=== PATIENT | female | born 1930 | race African-American/Black ===

== ENCOUNTER 2019-06-11 13:06 | Inpatient (IN) | payer MEDICARE, MEDICAID ==
[~2019-06-11] VITALS: Ht 165.1 cm; Wt 78.5 kg
[~2019-06-11 13:06] MED LIST: DOCU-150 PO; FENO200C PO; LANTUS SQ
[2019-06-11 13:57] LABS: BASOPHILS % 0.9 % (0.0-2.0); EOSINOPHILS % 3.1 % (0.0-5.0); HEMATOCRIT. 36.5 % (36.0-48.0); HEMOGLOBIN. 12.1 g/dL (12.0-16.0); LYMPHOCYTES % 21.2 % (20.0-50.0); MEAN CORPUSCULAR HEMOGLOBIN 32.8 pg (28.0-32.0); MEAN CORPUSCULAR VOLUME 99.2 fL (81.0-99.0); MEAN PLATELET VOLUME 7.2 fl (7.4-10.4); MONOCYTES % 4.7 % (2.0-8.0); NEUTROPHILS % 70.1 % (40.0-76.0); PLATELET 305 x1000/uL (130-400); RED BLOOD CELL COUNT 3.68 mill/uL (4.2-5.4); RED CELL DISTRIBUTION WIDTH 13.4 % (11.6-14.6)
[2019-06-11 14:03] LABS: CHLORIDE 109 mEq/L (98-107)
[2019-06-11 14:06] LABS: PROTHROMBIN TIME 10.4 sec (9.6-11.0)
[2019-06-11] MEDS ORDERED: LACTULOSE 20G/30ML UDC PO PRN (19:45)
[2019-06-11] MEDS ORDERED: ONDANSETRON HCL 4MG/2ML INJ IV PRN (19:45)
[2019-06-11] MEDS ORDERED: IPRATROPIUM/ALBUTEROL 0.5-3(2.5)MG/3ML NEB NEB PRN (19:45)
[2019-06-11] MEDS ORDERED: MAGNESIUM/ALUMINUM HYDROXIDE/SIMETHICONE 30ML UDC PO PRN (19:45)
[2019-06-11] MEDS ORDERED: CLONIDINE 0.1MG TABLET PO PRN (19:45)
[2019-06-11] MEDS ORDERED: DEXTROSE 50% WATER 50ML SYRINGE IV PRN (21:15)
[2019-06-11] MEDS: BLOOD SUGAR DIAGNOSTIC STRIP TEST SCH (21:30)
[2019-06-11] MEDS: INSULIN LISPRO (LOW DOSE) 100 UNITS/ML SUBCUT SCH (21:30)
[2019-06-11 21:45] VITALS: BP 163/62
[2019-06-11 22:48] VITALS: BP 163/62
[2019-06-11] MEDS: DEXT 5%/0.45% NACL 1000ML 1,000 ML IV SCH (23:24)
[2019-06-11] MEDS: ENOXAPARIN 40MG/0.4ML SYR SUBCUT SCH (23:26)
[2019-06-12 00:05] VITALS: BP 139/47
[2019-06-12 04:00] VITALS: BP 115/45
[2019-06-12] MEDS ORDERED: IOHEXOL-350 100 ML BOTTLE ONE (07:19)
[2019-06-12] MEDS: BLOOD SUGAR DIAGNOSTIC STRIP TEST SCH ×4 (07:42→21:02)
[2019-06-12] MEDS: INSULIN LISPRO (LOW DOSE) 100 UNITS/ML SUBCUT SCH ×4 (07:43→21:00)
[2019-06-12 07:58] LABS: BASOPHILS % 0.5 % (0.0-2.0); EOSINOPHILS % 6.2 % (0.0-5.0); HEMATOCRIT. 32.4 % (36.0-48.0); HEMOGLOBIN. 10.8 g/dL (12.0-16.0); LYMPHOCYTES % 40.3 % (20.0-50.0); MEAN CORPUSCULAR HEMOGLOBIN 32.9 pg (28.0-32.0); MEAN CORPUSCULAR VOLUME 98.9 fL (81.0-99.0); MEAN PLATELET VOLUME 7.2 fl (7.4-10.4); PLATELET 291 x1000/uL (130-400); RED BLOOD CELL COUNT 3.28 mill/uL (4.2-5.4); RED CELL DISTRIBUTION WIDTH 13.3 % (11.6-14.6)
[2019-06-12 08:00] VITALS: BP 132/58
[2019-06-12] MEDS: DOCUSATE SODIUM 250MG CAPSULE PO SCH (08:15)
[2019-06-12 09:54] LABS: CHLORIDE 112 mEq/L (98-107)
[2019-06-12 10:01] LABS: PHOSPHORUS 2.3 mg/dL (2.5-4.9)
[2019-06-12 12:00] VITALS: BP 125/50
[2019-06-12 16:00] VITALS: BP 121/44
[2019-06-12] MEDS: DEXT 5%/0.45% NACL 1000ML 1,000 ML IV SCH (18:04)
[2019-06-12 20:00] VITALS: BP 153/55
[2019-06-12] MEDS: ACETAMINOPHEN 325MG TABLET PO PRN (21:04)
[2019-06-12] MEDS: ENOXAPARIN 40MG/0.4ML SYR SUBCUT SCH (21:31)
[2019-06-13 00:01] VITALS: BP 126/46
[2019-06-13 04:00] VITALS: BP 141/65
[2019-06-13 08:00] VITALS: BP 149/57
[2019-06-13] MEDS: BLOOD SUGAR DIAGNOSTIC STRIP TEST SCH ×4 (08:08→21:24)
[2019-06-13] MEDS: INSULIN LISPRO (LOW DOSE) 100 UNITS/ML SUBCUT SCH ×4 (08:08→21:45)
[2019-06-13] MEDS: DOCUSATE SODIUM 250MG CAPSULE PO SCH (08:19)
[2019-06-13] MEDS: DEXT 5%/0.45% NACL 1000ML 1,000 ML IV SCH ×2 (08:20→23:36)
[2019-06-13 12:00] VITALS: BP 132/49
[2019-06-13 16:34] VITALS: BP 129/48
[2019-06-13] MEDS: ENOXAPARIN 40MG/0.4ML SYR SUBCUT SCH (21:42)
[2019-06-14] MEDS: BLOOD SUGAR DIAGNOSTIC STRIP TEST SCH ×4 (05:48→21:00)
[2019-06-14 06:15] LABS: BASOPHILS % 0.5 % (0.0-2.0); EOSINOPHILS % 4.1 % (0.0-5.0); LYMPHOCYTES % 38.6 % (20.0-50.0); MEAN CORPUSCULAR HEMOGLOBIN 33.2 pg (28.0-32.0); MEAN CORPUSCULAR VOLUME 99.5 fL (81.0-99.0); MEAN PLATELET VOLUME 7.3 fl (7.4-10.4); NEUTROPHILS % 49.8 % (40.0-76.0); PLATELET 277 x1000/uL (130-400); RED BLOOD CELL COUNT 3.32 mill/uL (4.2-5.4)
[2019-06-14] MEDS: INSULIN LISPRO (LOW DOSE) 100 UNITS/ML SUBCUT SCH ×4 (06:35→21:00)
[2019-06-14 07:24] LABS: CHLORIDE 114 mEq/L (98-107)
[2019-06-14 08:00] VITALS: BP 128/62
[2019-06-14] MEDS: DOCUSATE SODIUM 250MG CAPSULE PO SCH (09:13)
[2019-06-14 12:00] VITALS: BP 119/41
[2019-06-14 15:24] LABS: PHOSPHORUS 2.8 mg/dL (2.5-4.9)
[2019-06-14 16:00] VITALS: BP 103/34
[2019-06-14 16:28] LABS: T4 FREE 1.31 ng/dL (0.76-1.46)
[2019-06-14] MEDS: ACETAMINOPHEN 325MG TABLET PO PRN (17:56)
[2019-06-14] MEDS: METFORMIN HCL 500MG TABLET PO SCH (17:56)
[2019-06-14 20:00] VITALS: BP 114/63
[2019-06-14] MEDS: ENOXAPARIN 40MG/0.4ML SYR SUBCUT SCH (23:26)
[2019-06-15] VITALS: BP 157/56
[2019-06-15 06:36] VITALS: BP 114/67
[2019-06-15] MEDS: BLOOD SUGAR DIAGNOSTIC STRIP TEST SCH ×2 (07:40→11:56)
[2019-06-15 08:00] VITALS: BP 109/41
[2019-06-15] MEDS: INSULIN LISPRO (LOW DOSE) 100 UNITS/ML SUBCUT SCH ×2 (08:10→12:11)
[2019-06-15] MEDS: METFORMIN HCL 500MG TABLET PO SCH (08:21)
[2019-06-15] MEDS: DOCUSATE SODIUM 250MG CAPSULE PO SCH (08:21)
[2019-06-15 11:50] VITALS: BP 109/91
[2019-06-15 12:00] VITALS: BP 116/42
[2019-06-15 12:28] LABS: CHLORIDE 111 mEq/L (98-107)
[2019-06-15 13:11] LABS: C-PEPTIDE 0.7 ng/mL (1.1-4.4); INSULIN 4.6 uIU/mL (2.6-24.9)
[2019-06-15 16:00] VITALS: BP 115/59
[2019-06-16 09:11] LABS: FOLICLE STIMULATING HORMONE 91.3 mIU/mL (.)
== END 2019-06-15 17:14 | DRG 638 ==
LOC: ER 13:06 → 7WST 15:38 → EDBEDREQ 15:42 → EDBEDREQTM 15:42 → ENRESERV 20:19
PROVIDERS: ADMIT Internal Medicine Nephrology; ATTEND Internal Medicine Nephrology
DX: E11.649 Type 2 diabetes mellitus with hypoglycemia without coma (principal); E46 Unspecified protein-calorie malnutrition; I69.354 Hemiplegia and hemiparesis following cerebral infarction affecting left non-dominant side; E86.0 Dehydration; E78.5 Hyperlipidemia, unspecified; F17.200 Nicotine dependence, unspecified, uncomplicated; F20.9 Schizophrenia, unspecified; I11.0 Hypertensive heart disease with heart failure; I50.9 Heart failure, unspecified; I25.10 Atherosclerotic heart disease of native coronary artery without angina pectoris; J44.9 Chronic obstructive pulmonary disease, unspecified; L89.159 Pressure ulcer of sacral region, unspecified stage; E21.0 Primary hyperparathyroidism; Z74.01 Bed confinement status; Z95.810 Presence of automatic (implantable) cardiac defibrillator; Z79.4 Long term (current) use of insulin; Z68.28 Body mass index [BMI] 28.0-28.9, adult
CPT/HCPCS: 36415; 71045; 80048; 82330; 82947; 82962; 83001; 83002; 83525; 83735; 83880; 83970; 84100; 84439; 84443; 84484; 84681; 93005; 99285; J1650; J1815; Q9967

== ENCOUNTER 2019-08-08 15:56 | Inpatient (IN) | payer MEDICARE, MEDICAID ==
[~2019-08-08] VITALS: Ht 157.5 cm; Wt 72.6 kg
[2019-08-08 17:12] LABS: BASOPHILS % 0.2 % (0.0-2.0); EOSINOPHILS % 1.7 % (0.0-5.0); HEMATOCRIT. 40.3 % (36.0-48.0); HEMOGLOBIN. 12.1 g/dL (12.0-16.0); LYMPHOCYTES % 11.6 % (20.0-50.0); MEAN CORPUSCULAR HEMOGLOBIN 32.5 pg (28.0-32.0); MEAN CORPUSCULAR VOLUME 107.9 fL (81.0-99.0); MEAN PLATELET VOLUME 8.8 fl (7.4-10.4); MONOCYTES % 4.2 % (2.0-8.0); NEUTROPHILS % 82.3 % (40.0-76.0); PLATELET 327 x1000/uL (130-400); RED BLOOD CELL COUNT 3.73 mill/uL (4.2-5.4); RED CELL DISTRIBUTION WIDTH 15.1 % (11.6-14.6)
[2019-08-08] MEDS ORDERED: SODIUM CHLORIDE 0.9% 1000ML BAG (SEPSIS BOLUS) IV ONE (17:15)
[2019-08-08] MEDS ORDERED: INSULIN REGULAR (HUMULIN R) UD 100 UNITS/ML SYR SUBCUT ONE (17:15)
[2019-08-08] MEDS ORDERED: LEVOFLOXACIN 750MG PREMIX 150 ML IV ONE (17:15)
[2019-08-08 17:18] LABS: CHLORIDE 135 mEq/L (98-107)
[2019-08-08 17:20] LABS: INR 1.1; PARTIAL THROMBOPLASTIN TIME 28.3 sec (23.4-31.0); PROTHROMBIN TIME 11.4 sec (9.6-11.0)
[2019-08-08 17:24] LABS: BG BASE EXCESS -8.3 mmol/L (-2.0-2.0); BG CARBOXYHEMOGLOBIN 0.3 % (0.5-1.5); BG DEOXYHEMOGLOBIN 4.4 % (0.0-5.0); BG FRACTION INSPIRED OXYGEN 21; BG HCO3 ACT 17.1 mmol/L (22.0-26.0); BG METHEMOGLOBIN 0.3 % (0.0-1.5); BG OXYGEN SATURATION 95.6 % (92.0-98.5); BG PCO2 34.6 mmHg (35.0-45.0); BG PH 7.311 (7.350-7.450); BG PO2 82.5 mmHg (75.0-100.0); BG SAMPLE SITE RIGHT BRACHIAL; BG TOTAL HEMOGLOBIN 12.2 g/dL (12.0-18.0); BG VENT MODE ROOM AIR
[2019-08-08 17:25] LABS: BETA HYDROXYBUTYRATE 0.2 mMol/L (0.0-0.3)
[2019-08-08] MEDS ORDERED: INSULIN REGULAR (HUMULIN R) 300UNITS/3ML SUBCUT ONE (18:45)
[2019-08-08] MEDS ORDERED: INSULIN REGULAR (HUMULIN R) UD 100 UNITS/ML SYR IV ONE (20:45)
[2019-08-08] MEDS ORDERED: SODIUM BICARBONATE 8.4% 1 MEQ/ML 50ML SYR IV ONE (20:45)
[2019-08-08] MEDS ORDERED: PIPERACILLIN/TAZ 3.375G PREMIX 50 ML IV ONE (20:45)
[2019-08-08] MEDS ORDERED: VANCOMYCIN 1 G PREMIX 200 ML IV SCH (20:45)
[2019-08-08] MEDS ORDERED: INSULIN REGULAR (HUMULIN R) 300UNITS/3ML IV ONE (21:30)
[2019-08-08] MEDS ORDERED: SODIUM CHLORIDE 0.9% 1,000 ML IV SCH ×2 (22:19→22:36)
[2019-08-08] MEDS ORDERED: LORAZEPAM 2MG/ML CPJ IV PRN (22:30)
[2019-08-08] MEDS ORDERED: ONDANSETRON HCL 4MG/2ML INJ IV PRN (22:30)
[2019-08-08] MEDS ORDERED: MAGNESIUM/ALUMINUM HYDROXIDE/SIMETHICONE 30ML UDC PO PRN (22:30)
[2019-08-08 23:18] LABS: CLARITY URINE CLOUDY (CLEAR); COLOR URINE YELLOW (YELLOW); KETONES URINE NEGATIVE (NEGATIVE); LEUKOCYTE ESTERASE URINE 1+ (NEGATIVE); NITRITE URINE NEGATIVE (NEGATIVE); OCCULT BLOOD URINE 2+ (NEGATIVE); PROTEIN URINE TRACE (NEGATIVE); SPECIFIC GRAVITY URINE 1.024 (1.005-1.030); UROBILINOGEN URINE 0.2 E.U./dL (0.2-1.0)
[2019-08-09] VITALS (15 sets, daily range): BP systolic 86–154; BP diastolic 41–85
[2019-08-09] MEDS ORDERED: DEXTROSE 50% WATER 50ML SYRINGE IV PRN
[2019-08-09] MEDS: BLOOD SUGAR DIAGNOSTIC STRIP TEST SCH ×6 (00:15→20:06)
[2019-08-09] MEDS: ENOXAPARIN 30MG/0.3ML SYR SUBCUT SCH ×2 (00:16→20:25)
[2019-08-09] MEDS: INSULIN LISPRO 100 UNITS/ML SUBCUT SCH ×6 (01:07→20:24)
[2019-08-09] MEDS: SODIUM CHLORIDE 0.45% 1,000 ML IV SCH ×3 (03:49→18:18)
[2019-08-09] MEDS ORDERED: INSULIN REGULAR (HUMULIN R) UD 100 UNITS/ML SYR IV NR (04:30)
[2019-08-09] MEDS: ACETAMINOPHEN 325MG TABLET PO PRN (05:13)
[2019-08-09 07:29] LABS: BASOPHILS % 0.4 % (0.0-2.0); EOSINOPHILS % 1.6 % (0.0-5.0); HEMATOCRIT. 33.3 % (36.0-48.0); HEMOGLOBIN. 10.6 g/dL (12.0-16.0); LYMPHOCYTES % 13.7 % (20.0-50.0); MEAN CORPUSCULAR HEMOGLOBIN 32.1 pg (28.0-32.0); MEAN PLATELET VOLUME 8.7 fl (7.4-10.4); MONOCYTES % 5.7 % (2.0-8.0); NEUTROPHILS % 78.6 % (40.0-76.0); PLATELET 252 x1000/uL (130-400); RED CELL DISTRIBUTION WIDTH 13.4 % (11.6-14.6)
[2019-08-09 07:50] LABS: PHOSPHORUS 2.3 mg/dL (2.5-4.9)
[2019-08-09] MEDS ORDERED: DEXT 5% WATER 500 ML IV ONE (09:45)
[2019-08-09] MEDS: LEVOFLOXACIN 250MG PREMIX 50 ML IV SCH (18:17)
[2019-08-10] VITALS (12 sets, daily range): BP systolic 95–112; BP diastolic 39–70
[2019-08-10] MEDS: BLOOD SUGAR DIAGNOSTIC STRIP TEST SCH ×6 (00:06→20:51)
[2019-08-10] MEDS: INSULIN LISPRO 100 UNITS/ML SUBCUT SCH ×6 (00:22→20:57)
[2019-08-10] MEDS: INSULIN GLARGINE UD 100 UNITS/ML SYR SUBCUT SCH ×2 (00:25→21:35)
[2019-08-10] MEDS: SODIUM CHLORIDE 0.45% 1,000 ML IV SCH ×3 (02:26→18:03)
[2019-08-10 06:12] LABS: BASOPHILS % 0.4 % (0.0-2.0); EOSINOPHILS % 2.5 % (0.0-5.0); HEMATOCRIT. 31.1 % (36.0-48.0); LYMPHOCYTES % 26.5 % (20.0-50.0); MEAN CORPUSCULAR VOLUME 102.3 fL (81.0-99.0); MONOCYTES % 6.7 % (2.0-8.0); NEUTROPHILS % 63.9 % (40.0-76.0); PLATELET 229 x1000/uL (130-400); RED BLOOD CELL COUNT 3.04 mill/uL (4.2-5.4); RED CELL DISTRIBUTION WIDTH 13.8 % (11.6-14.6)
[2019-08-10 06:21] LABS: CHLORIDE 137 mEq/L (98-107)
[2019-08-10 06:37] LABS: PHOSPHORUS 2.5 mg/dL (2.5-4.9)
[2019-08-10 06:42] LABS: T4 FREE 1.17 ng/dL (0.76-1.46)
[2019-08-10] MEDS ORDERED: VANCOMYCIN 1 G PREMIX 200 ML IV SCH (17:00)
[2019-08-10] MEDS: LEVOFLOXACIN 250MG PREMIX 50 ML IV SCH (18:12)
[2019-08-10] MEDS: ENOXAPARIN 30MG/0.3ML SYR SUBCUT SCH (20:56)
[2019-08-11] VITALS (12 sets, daily range): BP systolic 101–149; BP diastolic 40–84
[2019-08-11] MEDS: BLOOD SUGAR DIAGNOSTIC STRIP TEST SCH ×5 (00:24→21:00)
[2019-08-11] MEDS: INSULIN LISPRO 100 UNITS/ML SUBCUT SCH ×4 (00:35→17:34)
[2019-08-11] MEDS: SODIUM CHLORIDE 0.45% 1,000 ML IV SCH ×2 (01:51→13:57)
[2019-08-11 06:33] LABS: HEMATOCRIT 31.4 % (36.0-48.0); HEMOGLOBIN 10.2 g/dL (12.0-16.0); MEAN CORPUSCULAR HEMOGLOBIN 32.7 pg (28.0-32.0); MEAN CORPUSCULAR VOLUME 100.3 fL (81.0-99.0); RED BLOOD CELL COUNT 3.13 mill/uL (4.2-5.4); RED CELL DISTRIBUTION WIDTH 13.4 % (11.6-14.6)
[2019-08-11] MEDS: INSULIN LISPRO (LOW DOSE) 100 UNITS/ML SUBCUT SCH ×3 (07:30→17:34)
[2019-08-11] MEDS ORDERED: INSULIN LISPRO 100 UNITS/ML SUBCUT SCH (07:30)
[2019-08-11 07:43] LABS: PHOSPHORUS 2.2 mg/dL (2.5-4.9)
[2019-08-11 09:26] LABS: PLATELET 232 x1000/uL (130-400)
[2019-08-11] MEDS: VANCOMYCIN 750 MG PREMIX 150 ML IV SCH (10:19)
[2019-08-11] MEDS: CEFAZOLIN 500MG in DEXTROSE 5% WATER 50ML IV SCH (13:57)
[2019-08-11] MEDS ORDERED: CEFAZOLIN SODIUM 1000MG/VIAL IV SCH (14:00)
[2019-08-11] MEDS: INSULIN GLARGINE UD 100 UNITS/ML SYR SUBCUT SCH (22:00)
[2019-08-11] MEDS: ENOXAPARIN 40MG/0.4ML SYR SUBCUT SCH (22:11)
[2019-08-12] VITALS (13 sets, daily range): BP systolic 92–144; BP diastolic 40–80
[2019-08-12] MEDS: CEFAZOLIN 500MG in DEXTROSE 5% WATER 50ML IV SCH ×2 (02:29→15:15)
[2019-08-12] MEDS: SODIUM CHLORIDE 0.45% 1,000 ML IV SCH ×2 (02:29→15:16)
[2019-08-12] MEDS: VANCOMYCIN 750 MG PREMIX 150 ML IV SCH ×2 (03:29→20:40)
[2019-08-12 06:03] LABS: BASOPHILS % 0.4 % (0.0-2.0); EOSINOPHILS % 2.3 % (0.0-5.0); HEMOGLOBIN. 9.3 g/dL (12.0-16.0); LYMPHOCYTES % 30.2 % (20.0-50.0); MEAN CORPUSCULAR HEMOGLOBIN 32.9 pg (28.0-32.0); MEAN CORPUSCULAR VOLUME 98.6 fL (81.0-99.0); MEAN PLATELET VOLUME 9.4 fl (7.4-10.4); NEUTROPHILS % 60.1 % (40.0-76.0); PLATELET 147 x1000/uL (130-400); RED BLOOD CELL COUNT 2.84 mill/uL (4.2-5.4); RED CELL DISTRIBUTION WIDTH 12.8 % (11.6-14.6)
[2019-08-12 06:12] LABS: CHLORIDE 124 mEq/L (98-107)
[2019-08-12] MEDS: INSULIN LISPRO 100 UNITS/ML SUBCUT SCH ×6 (07:30→17:49)
[2019-08-12] MEDS: BLOOD SUGAR DIAGNOSTIC STRIP TEST SCH ×4 (07:42→20:39)
[2019-08-12 08:20] LABS: PHOSPHORUS 1.7 mg/dL (2.5-4.9)
[2019-08-12] MEDS ORDERED: SODIUM PHOS,M-BASIC-D-BASIC 20 MM in DEXT 5% WATER 243.3333 ML IV ONE (11:30)
[2019-08-12] MEDS ORDERED: SODIUM PHOS,M-BASIC-D-BASIC 20 MM in DEXT 5% WATER 243.3333 ML IV NR ×2 (12:30→14:00)
[2019-08-12] MEDS: ENOXAPARIN 40MG/0.4ML SYR SUBCUT SCH (20:39)
[2019-08-12] MEDS: INSULIN GLARGINE UD 100 UNITS/ML SYR SUBCUT SCH (20:59)
[2019-08-13] VITALS (12 sets, daily range): BP systolic 87–136; BP diastolic 38–96
[2019-08-13] MEDS: CEFAZOLIN 500MG in DEXTROSE 5% WATER 50ML IV SCH ×2 (01:55→15:18)
[2019-08-13] MEDS: SODIUM CHLORIDE 0.45% 1,000 ML IV SCH ×2 (01:56→17:33)
[2019-08-13 05:52] LABS: BASOPHILS % 0.3 % (0.0-2.0); EOSINOPHILS % 1.7 % (0.0-5.0); HEMATOCRIT. 27.9 % (36.0-48.0); HEMOGLOBIN. 9.2 g/dL (12.0-16.0); LYMPHOCYTES % 27.3 % (20.0-50.0); MEAN CORPUSCULAR HEMOGLOBIN 32.5 pg (28.0-32.0); MEAN CORPUSCULAR VOLUME 98.2 fL (81.0-99.0); MEAN PLATELET VOLUME 8.7 fl (7.4-10.4); MONOCYTES % 6.5 % (2.0-8.0); NEUTROPHILS % 64.2 % (40.0-76.0); PLATELET 198 x1000/uL (130-400); RED BLOOD CELL COUNT 2.84 mill/uL (4.2-5.4); RED CELL DISTRIBUTION WIDTH 12.8 % (11.6-14.6)
[2019-08-13 06:22] LABS: FOLIC ACID (FOLATE) SERUM 13.3 ng/mL (>5.38)
[2019-08-13 06:35] LABS: CHLORIDE 122 mEq/L (98-107)
[2019-08-13 06:46] LABS: PHOSPHORUS 2.3 mg/dL (2.5-4.9)
[2019-08-13] MEDS: INSULIN LISPRO 100 UNITS/ML SUBCUT SCH ×6 (07:30→17:32)
[2019-08-13] MEDS: BLOOD SUGAR DIAGNOSTIC STRIP TEST SCH ×4 (08:11→20:56)
[2019-08-13] MEDS ORDERED: SODIUM PHOS,M-BASIC-D-BASIC 10 MM in DEXT 5% WATER 246.6667 ML IV NR (12:00)
[2019-08-13] MEDS: VANCOMYCIN 750 MG PREMIX 150 ML IV SCH (17:31)
[2019-08-13] MEDS: ENOXAPARIN 40MG/0.4ML SYR SUBCUT SCH (20:56)
[2019-08-13] MEDS: INSULIN GLARGINE UD 100 UNITS/ML SYR SUBCUT SCH (20:57)
[2019-08-14] VITALS (12 sets, daily range): BP systolic 105–135; BP diastolic 31–69
[2019-08-14] MEDS: CEFAZOLIN 500MG in DEXTROSE 5% WATER 50ML IV SCH ×2 (01:22→13:55)
[2019-08-14] MEDS: SODIUM CHLORIDE 0.45% 1,000 ML IV SCH ×3 (01:23→21:50)
[2019-08-14 06:07] LABS: CHLORIDE 118 mEq/L (98-107)
[2019-08-14 06:18] LABS: PHOSPHORUS 2.1 mg/dL (2.5-4.9)
[2019-08-14 06:31] LABS: BASOPHILS % 0.1 % (0.0-2.0); EOSINOPHILS % 1.7 % (0.0-5.0); HEMATOCRIT. 25.4 % (36.0-48.0); HEMOGLOBIN. 8.5 g/dL (12.0-16.0); LYMPHOCYTES % 31.2 % (20.0-50.0); MEAN CORPUSCULAR HEMOGLOBIN 33.3 pg (28.0-32.0); MEAN PLATELET VOLUME 8.5 fl (7.4-10.4); MONOCYTES % 7.1 % (2.0-8.0); NEUTROPHILS % 59.9 % (40.0-76.0); PLATELET 253 x1000/uL (130-400); RED BLOOD CELL COUNT 2.57 mill/uL (4.2-5.4); RED CELL DISTRIBUTION WIDTH 12.8 % (11.6-14.6)
[2019-08-14] MEDS: BLOOD SUGAR DIAGNOSTIC STRIP TEST SCH ×4 (07:30→21:44)
[2019-08-14] MEDS: INSULIN LISPRO 100 UNITS/ML SUBCUT SCH ×6 (08:00→17:30)
[2019-08-14] MEDS: VANCOMYCIN 750 MG PREMIX 150 ML IV SCH (09:49)
[2019-08-14] MEDS: ENOXAPARIN 40MG/0.4ML SYR SUBCUT SCH (21:44)
[2019-08-14] MEDS: INSULIN GLARGINE UD 100 UNITS/ML SYR SUBCUT SCH (21:50)
[2019-08-15] VITALS (12 sets, daily range): BP systolic 97–139; BP diastolic 48–74
[2019-08-15] MEDS: CEFAZOLIN 500MG in DEXTROSE 5% WATER 50ML IV SCH ×2 (01:45→17:12)
[2019-08-15] MEDS: VANCOMYCIN 750 MG PREMIX 150 ML IV SCH ×2 (03:49→21:47)
[2019-08-15] MEDS: SODIUM CHLORIDE 0.45% 1,000 ML IV SCH ×2 (06:52→18:54)
[2019-08-15] MEDS: INSULIN LISPRO 100 UNITS/ML SUBCUT SCH ×6 (07:30→17:14)
[2019-08-15] MEDS: BLOOD SUGAR DIAGNOSTIC STRIP TEST SCH ×4 (07:40→21:41)
[2019-08-15] MEDS ORDERED: SODIUM PHOS,M-BASIC-D-BASIC 15 MM in DEXT 5% WATER 245 ML IV NR (14:00)
[2019-08-15] MEDS ORDERED: LIDOCAINE HCL/EPINEPHRINE 1%-EPI 1:100,000 20 ML VIAL INFIL NR (15:00)
[2019-08-15] MEDS: INSULIN GLARGINE UD 100 UNITS/ML SYR SUBCUT SCH (21:47)
[2019-08-15] MEDS: ENOXAPARIN 40MG/0.4ML SYR SUBCUT SCH (21:48)
[2019-08-15] MEDS: ACETAMINOPHEN 325MG TABLET PO PRN (22:21)
[2019-08-16] VITALS: BP 90/37
[2019-08-16] MEDS: CEFAZOLIN 500MG in DEXTROSE 5% WATER 50ML IV SCH ×2 (02:30→15:24)
[2019-08-16 04:00] VITALS: BP 125/57
[2019-08-16] MEDS: BLOOD SUGAR DIAGNOSTIC STRIP TEST SCH ×4 (06:28→21:47)
[2019-08-16] MEDS: SODIUM CHLORIDE 0.45% 1,000 ML IV SCH ×2 (06:28→15:04)
[2019-08-16] MEDS: INSULIN LISPRO 100 UNITS/ML SUBCUT SCH ×6 (07:20→19:05)
[2019-08-16 08:14] VITALS: BP 101/47
[2019-08-16 12:41] VITALS: BP 125/55
[2019-08-16] MEDS: SODIUM HYPOCHLORITE 0.125% 473ML SOLUTION TOP SCH ×2 (15:05→15:24)
[2019-08-16 16:46] VITALS: BP 127/44
[2019-08-16] MEDS: VANCOMYCIN 750 MG PREMIX 150 ML IV SCH (16:59)
[2019-08-16 20:00] VITALS: BP 127/41
[2019-08-16] MEDS: ENOXAPARIN 40MG/0.4ML SYR SUBCUT SCH (21:46)
[2019-08-16] MEDS: INSULIN GLARGINE UD 100 UNITS/ML SYR SUBCUT SCH (21:47)
[2019-08-17] VITALS (10 sets, daily range): BP systolic 103–157; BP diastolic 48–85
[2019-08-17] MEDS: SODIUM CHLORIDE 0.45% 1,000 ML IV SCH ×3 (01:30→20:59)
[2019-08-17] MEDS: CEFAZOLIN 500MG in DEXTROSE 5% WATER 50ML IV SCH ×2 (03:52→15:56)
[2019-08-17] MEDS: BLOOD SUGAR DIAGNOSTIC STRIP TEST SCH ×4 (07:07→20:59)
[2019-08-17] MEDS: INSULIN LISPRO 100 UNITS/ML SUBCUT SCH ×6 (07:20→17:51)
[2019-08-17 08:31] LABS: BASOPHILS % 0.2 % (0.0-2.0); EOSINOPHILS % 1.5 % (0.0-5.0); LYMPHOCYTES % 22.5 % (20.0-50.0); MEAN CORPUSCULAR HEMOGLOBIN 32.9 pg (28.0-32.0); MEAN CORPUSCULAR VOLUME 97.2 fL (81.0-99.0); MONOCYTES % 8.5 % (2.0-8.0); NEUTROPHILS % 67.3 % (40.0-76.0); PLATELET 343 x1000/uL (130-400); RED BLOOD CELL COUNT 2.04 mill/uL (4.2-5.4); RED CELL DISTRIBUTION WIDTH 13.1 % (11.6-14.6)
[2019-08-17 08:38] LABS: HEMOGLOBIN. 6.7 g/dL (12.0-16.0)
[2019-08-17 08:39] LABS: HEMATOCRIT. 19.8 % (36.0-48.0)
[2019-08-17 08:41] LABS: CHLORIDE 103 mEq/L (98-107)
[2019-08-17] MEDS: VANCOMYCIN 750 MG PREMIX 150 ML IV SCH (09:40)
[2019-08-17] MEDS ORDERED: POTASSIUM CHLORIDE 20MEQ TABLET SR PO NR (11:00)
[2019-08-17] MEDS: SODIUM HYPOCHLORITE 0.125% 473ML SOLUTION TOP SCH (16:57)
[2019-08-17] MEDS ORDERED: POTASSIUM CHLORIDE 20MEQ TABLET SR PO SCH (17:00)
[2019-08-17 21:46] LABS: HEMATOCRIT 30.1 % (36.0-48.0); HEMOGLOBIN 10.1 g/dL (12.0-16.0); MEAN CORPUSCULAR HEMOGLOBIN 31.8 pg (28.0-32.0); MEAN CORPUSCULAR VOLUME 94.8 fL (81.0-99.0); PLATELET 419 x1000/uL (130-400); RED BLOOD CELL COUNT 3.17 mill/uL (4.2-5.4); RED CELL DISTRIBUTION WIDTH 14.2 % (11.6-14.6)
[2019-08-17 22:00] LABS: PROTHROMBIN TIME 10.6 sec (9.6-11.0)
[2019-08-17] MEDS: INSULIN GLARGINE UD 100 UNITS/ML SYR SUBCUT SCH (22:32)
[2019-08-18] VITALS: BP 124/51
[2019-08-18] MEDS: CEFAZOLIN 500MG in DEXTROSE 5% WATER 50ML IV SCH ×2 (02:29→13:31)
[2019-08-18] MEDS: VANCOMYCIN 750 MG PREMIX 150 ML IV SCH ×2 (03:41→22:08)
[2019-08-18 04:00] VITALS: BP 106/59
[2019-08-18] MEDS: SODIUM CHLORIDE 0.45% 1,000 ML IV SCH ×2 (06:58→11:40)
[2019-08-18 07:00] LABS: CHLORIDE 114 mEq/L (98-107)
[2019-08-18 07:01] LABS: BASOPHILS % 0.4 % (0.0-2.0); EOSINOPHILS % 1.7 % (0.0-5.0); HEMATOCRIT. 26.9 % (36.0-48.0); HEMOGLOBIN. 9.2 g/dL (12.0-16.0); LYMPHOCYTES % 25.4 % (20.0-50.0); MEAN CORPUSCULAR HEMOGLOBIN 32.2 pg (28.0-32.0); MEAN CORPUSCULAR VOLUME 94.2 fL (81.0-99.0); MEAN PLATELET VOLUME 7.2 fl (7.4-10.4); MONOCYTES % 7.7 % (2.0-8.0); NEUTROPHILS % 64.8 % (40.0-76.0); PLATELET 445 x1000/uL (130-400); RED BLOOD CELL COUNT 2.86 mill/uL (4.2-5.4); RED CELL DISTRIBUTION WIDTH 14.1 % (11.6-14.6)
[2019-08-18] MEDS: INSULIN LISPRO 100 UNITS/ML SUBCUT SCH ×6 (07:20→17:03)
[2019-08-18] MEDS: BLOOD SUGAR DIAGNOSTIC STRIP TEST SCH ×4 (07:33→21:00)
[2019-08-18] MEDS: SODIUM HYPOCHLORITE 0.125% 473ML SOLUTION TOP SCH (08:27)
[2019-08-18 08:43] VITALS: BP 120/46
[2019-08-18 12:05] VITALS: BP 116/56
[2019-08-18 16:35] VITALS: BP 124/48
[2019-08-18 20:33] VITALS: BP 114/43
[2019-08-18] MEDS: INSULIN GLARGINE UD 100 UNITS/ML SYR SUBCUT SCH (22:08)
[2019-08-19] VITALS: BP 131/49
[2019-08-19 04:00] VITALS: BP 129/43
[2019-08-19] MEDS: INSULIN LISPRO 100 UNITS/ML SUBCUT SCH ×6 (07:20→17:20)
[2019-08-19 07:27] LABS: CHLORIDE 114 mEq/L (98-107)
[2019-08-19 08:00] VITALS: BP 120/39
[2019-08-19] MEDS: BLOOD SUGAR DIAGNOSTIC STRIP TEST SCH ×4 (08:11→22:05)
[2019-08-19] MEDS: SODIUM HYPOCHLORITE 0.125% 473ML SOLUTION TOP SCH (08:53)
[2019-08-19 09:11] LABS: BASOPHILS % 0.5 % (0.0-2.0); HEMATOCRIT. 30.3 % (36.0-48.0); HEMOGLOBIN. 10.1 g/dL (12.0-16.0); LYMPHOCYTES % 27.4 % (20.0-50.0); MEAN CORPUSCULAR HEMOGLOBIN 31.5 pg (28.0-32.0); MEAN CORPUSCULAR VOLUME 94.5 fL (81.0-99.0); MEAN PLATELET VOLUME 6.8 fl (7.4-10.4); MONOCYTES % 6.9 % (2.0-8.0); NEUTROPHILS % 63.2 % (40.0-76.0); PLATELET 500 x1000/uL (130-400); RED CELL DISTRIBUTION WIDTH 14.1 % (11.6-14.6)
[2019-08-19 12:00] VITALS: BP 117/50
[2019-08-19 16:00] VITALS: BP 113/51
[2019-08-19] MEDS: VANCOMYCIN 750 MG PREMIX 150 ML IV SCH (16:10)
[2019-08-19 20:00] VITALS: BP 122/59
[2019-08-19] MEDS: INSULIN GLARGINE UD 100 UNITS/ML SYR SUBCUT SCH (22:07)
[2019-08-20] VITALS: BP 163/67
[2019-08-20 04:00] VITALS: BP 118/62
[2019-08-20] MEDS: BLOOD SUGAR DIAGNOSTIC STRIP TEST SCH (06:33)
[2019-08-20] MEDS: INSULIN LISPRO 100 UNITS/ML SUBCUT SCH ×2 (07:20→09:04)
[2019-08-20 08:00] VITALS: BP 115/49
[2019-08-20] MEDS: SODIUM HYPOCHLORITE 0.125% 473ML SOLUTION TOP SCH (09:02)
[2019-08-20] MEDS: VANCOMYCIN 750 MG PREMIX 150 ML IV SCH (09:59)
[2019-08-20 10:37] VITALS: BP 115/49
[2019-08-22 17:07] LABS: 25-HYDROXY VITAMIN D3 16 ng/mL (.)
== END 2019-08-20 12:00 | DRG 853 ==
LOC: ER 15:56 → 5EST 20:49 → ENRESERV 22:01 → 6WST 08-15 18:35
PROVIDERS: ADMIT Internal Medicine Nephrology; ATTEND Internal Medicine Nephrology
PROC: 0QB10ZZ Excision of Sacrum, Open Approach (ICD-10-PCS; principal; 2019-08-15)
PROC: 30233N1 Transfusion of Nonautologous Red Blood Cells into Peripheral Vein, Percutaneous Approach (ICD-10-PCS; 2019-08-17)
DX: A40.9 Streptococcal sepsis, unspecified (principal); L89.154 Pressure ulcer of sacral region, stage 4; G92 Toxic encephalopathy; E43 Unspecified severe protein-calorie malnutrition; E11.11 Type 2 diabetes mellitus with ketoacidosis with coma; E87.0 Hyperosmolality and hypernatremia; N39.0 Urinary tract infection, site not specified; N17.9 Acute kidney failure, unspecified; I69.354 Hemiplegia and hemiparesis following cerebral infarction affecting left non-dominant side; E87.1 Hypo-osmolality and hyponatremia; E11.649 Type 2 diabetes mellitus with hypoglycemia without coma; I50.9 Heart failure, unspecified; I11.0 Hypertensive heart disease with heart failure; J44.9 Chronic obstructive pulmonary disease, unspecified; E21.0 Primary hyperparathyroidism; D64.9 Anemia, unspecified; E86.0 Dehydration; B96.20 Unspecified Escherichia coli [E. coli] as the cause of diseases classified elsewhere; L89.620 Pressure ulcer of left heel, unstageable; L89.610 Pressure ulcer of right heel, unstageable; D75.89 Other specified diseases of blood and blood-forming organs; E87.6 Hypokalemia; E11.65 Type 2 diabetes mellitus with hyperglycemia; M19.90 Unspecified osteoarthritis, unspecified site; F20.9 Schizophrenia, unspecified; I25.10 Atherosclerotic heart disease of native coronary artery without angina pectoris; I69.322 Dysarthria following cerebral infarction; Z74.01 Bed confinement status; Z79.4 Long term (current) use of insulin; Z87.891 Personal history of nicotine dependence; Z95.810 Presence of automatic (implantable) cardiac defibrillator; Z79.899 Other long term (current) drug therapy; Z68.29 Body mass index [BMI] 29.0-29.9, adult
CPT/HCPCS: 36415; 36600; 71045; 80048; 80202; 81003; 82010; 82270; 82306; 82330; 82375; 82533; 82607; 82746; 82805; 82962; 83036; 83605; 83735; 84100; 84134; 84145; 84439; 84443; 84484; 85027; 85384; 86850; 86900; 86920; 87070; 87075; 87077; 87106; 87186; 93005; 93970; 96365; 96375; 99291; A6261; C1893; J0690; J1650; J1815; J1956; J2543; J3370; J3490; J7030; J7060; J7070; P9016; A4315

== ENCOUNTER 2019-10-18 11:55 | Inpatient (IN) | payer MEDICARE, MEDICAID ==
[~2019-10-18] VITALS: Ht 152.4 cm; Wt 78.0 kg
[2019-10-18] MEDS ORDERED: SODIUM CHLORIDE 0.9% 250 ML IV ONE (12:40)
[2019-10-18] MEDS ORDERED: CEFTRIAXONE 1 G PREMIX 50 ML IV ONE (13:30)
[2019-10-18] MEDS ORDERED: ASPIRIN 81MG TABLET PO ONE (13:30)
[2019-10-18 13:59] LABS: HEMATOCRIT. 33.5 % (36.0-48.0); HEMOGLOBIN. 11.1 g/dL (12.0-16.0); MEAN CORPUSCULAR VOLUME 93.5 fL (81.0-99.0); MEAN PLATELET VOLUME 6.4 fl (7.4-10.4); PLATELET 400 x1000/uL (130-400); RED BLOOD CELL COUNT 3.58 mill/uL (4.2-5.4); RED CELL DISTRIBUTION WIDTH 13.8 % (11.6-14.6)
[2019-10-18 14:02] LABS: CHLORIDE 108 mEq/L (98-107)
[2019-10-18 14:03] LABS: PARTIAL THROMBOPLASTIN TIME 28.5 sec (23.4-31.0); PROTHROMBIN TIME 10.2 sec (9.6-11.0)
[2019-10-18] MEDS ORDERED: LEVOFLOXACIN 500MG PREMIX 100 ML IV ONE ×2 (14:15→16:45)
[2019-10-18] MEDS ORDERED: SODIUM CHLORIDE 0.9% 1000ML BAG (SEPSIS BOLUS) IV ONE (14:30)
[2019-10-18 14:40] LABS: PLATELET ESTIMATE NORMAL
[2019-10-18 18:28] LABS: CLARITY URINE CLOUDY (CLEAR); COLOR URINE YELLOW (YELLOW); KETONES URINE NEGATIVE (NEGATIVE); LEUKOCYTE ESTERASE URINE 1+ (NEGATIVE); NITRITE URINE NEGATIVE (NEGATIVE); OCCULT BLOOD URINE 2+ (NEGATIVE); PROTEIN URINE 1+ (NEGATIVE)
[2019-10-18] MEDS ORDERED: IPRATROPIUM/ALBUTEROL 0.5-3(2.5)MG/3ML NEB NEB PRN (19:00)
[2019-10-18] MEDS ORDERED: MAGNESIUM/ALUMINUM HYDROXIDE/SIMETHICONE 30ML UDC PO PRN (19:00)
[2019-10-18] MEDS ORDERED: ACETAMINOPHEN 650MG SUPP PR PRN (19:00)
[2019-10-18] MEDS ORDERED: ONDANSETRON HCL 4MG/2ML INJ IV PRN (19:00)
[2019-10-18] MEDS ORDERED: DOCUSATE SODIUM 100MG CAPSULE PO PRN (19:00)
[2019-10-18] MEDS ORDERED: CLONIDINE 0.1MG TABLET PO PRN (19:00)
[2019-10-18] MEDS ORDERED: PIPERACILLIN/TAZ 3.375G PREMIX 50 ML IV NR (19:30)
[2019-10-19] MEDS ORDERED: TEMAZEPAM 15MG CAPSULE PO PRN
[2019-10-19] MEDS: SODIUM CHLORIDE 0.9% 1,000 ML IV SCH ×2 (01:30→12:06)
[2019-10-19 02:54] VITALS: BP 158/76
[2019-10-19 04:00] VITALS: BP 161/70
[2019-10-19] MEDS ORDERED: DEXTROSE 50% WATER 50ML SYRINGE IV PRN (04:15)
[2019-10-19] MEDS: PIPERACILLIN/TAZOBACTAM 3.375 G in DEXT 5% WATER 100 ML IV SCH ×3 (05:46→21:27)
[2019-10-19] MEDS ORDERED: PIPERACILLIN/TAZ 3.375G PREMIX 50 ML IV SCH (06:00)
[2019-10-19] MEDS: BLOOD SUGAR DIAGNOSTIC STRIP TEST SCH ×4 (06:52→22:03)
[2019-10-19] MEDS ORDERED: LATA2.5D2 EACHEYE (07:09)
[2019-10-19] MEDS ORDERED: METF-414 PO (07:09)
[2019-10-19] MEDS ORDERED: DOCU250C14 PO (07:09)
[2019-10-19] MEDS: INSULIN LISPRO 100 UNITS/ML SUBCUT SCH ×4 (07:50→22:07)
[2019-10-19 08:00] VITALS: BP 142/50
[2019-10-19] MEDS ORDERED: DOCUSATE SODIUM 100MG CAPSULE PO SCH (09:00)
[2019-10-19] MEDS ORDERED: FENOFIBRATE NANOCRYSTALLIZED 145MG TABLET PO SCH (09:00)
[2019-10-19] MEDS: ENOXAPARIN 40MG/0.4ML SYR SUBCUT SCH (09:11)
[2019-10-19] MEDS: METFORMIN HCL 500MG TABLET PO SCH ×2 (09:11→17:58)
[2019-10-19] MEDS: ASCORBIC ACID 500 MG TABLET PO SCH (09:11)
[2019-10-19 09:46] LABS: BASOPHILS % 0.5 % (0.0-2.0); EOSINOPHILS % 3.3 % (0.0-5.0); HEMATOCRIT. 31.1 % (36.0-48.0); HEMOGLOBIN. 10.4 g/dL (12.0-16.0); LYMPHOCYTES % 24.7 % (20.0-50.0); MEAN CORPUSCULAR HEMOGLOBIN 31.2 pg (28.0-32.0); MEAN CORPUSCULAR VOLUME 93.8 fL (81.0-99.0); MEAN PLATELET VOLUME 6.7 fl (7.4-10.4); MONOCYTES % 6.3 % (2.0-8.0); NEUTROPHILS % 65.2 % (40.0-76.0); PLATELET 371 x1000/uL (130-400); RED BLOOD CELL COUNT 3.32 mill/uL (4.2-5.4); RED CELL DISTRIBUTION WIDTH 13.7 % (11.6-14.6)
[2019-10-19 09:51] LABS: CHLORIDE 114 mEq/L (98-107)
[2019-10-19 12:00] VITALS: BP 134/71
[2019-10-19 16:00] VITALS: BP 151/62
[2019-10-19] MEDS: DOCUSATE SODIUM 250MG CAPSULE PO SCH (17:58)
[2019-10-19 20:00] VITALS: BP 144/61
[2019-10-19] MEDS: LATANOPROST 0.005% OPHTH DROPS 2.5ML BOTHEYE SCH (21:27)
[2019-10-20 00:11] VITALS: BP 127/65
[2019-10-20] MEDS: SODIUM CHLORIDE 0.9% 1,000 ML IV SCH ×2 (00:57→21:07)
[2019-10-20 04:00] VITALS: BP 117/73
[2019-10-20] MEDS: PIPERACILLIN/TAZOBACTAM 3.375 G in DEXT 5% WATER 100 ML IV SCH ×3 (05:46→21:06)
[2019-10-20 06:20] LABS: BASOPHILS % 0.4 % (0.0-2.0); EOSINOPHILS % 3.4 % (0.0-5.0); HEMATOCRIT. 30.1 % (36.0-48.0); HEMOGLOBIN. 10.2 g/dL (12.0-16.0); LYMPHOCYTES % 26.4 % (20.0-50.0); MEAN CORPUSCULAR HEMOGLOBIN 31.3 pg (28.0-32.0); MEAN CORPUSCULAR VOLUME 92.4 fL (81.0-99.0); MEAN PLATELET VOLUME 6.7 fl (7.4-10.4); MONOCYTES % 6.6 % (2.0-8.0); NEUTROPHILS % 63.2 % (40.0-76.0); PLATELET 348 x1000/uL (130-400); RED BLOOD CELL COUNT 3.26 mill/uL (4.2-5.4); RED CELL DISTRIBUTION WIDTH 13.8 % (11.6-14.6)
[2019-10-20] MEDS: BLOOD SUGAR DIAGNOSTIC STRIP TEST SCH ×4 (06:39→21:06)
[2019-10-20 06:43] LABS: CHLORIDE 114 mEq/L (98-107)
[2019-10-20] MEDS: INSULIN LISPRO 100 UNITS/ML SUBCUT SCH ×4 (07:50→21:05)
[2019-10-20 08:00] VITALS: BP 130/74
[2019-10-20] MEDS: METFORMIN HCL 500MG TABLET PO SCH ×2 (09:17→18:39)
[2019-10-20] MEDS: ASCORBIC ACID 500 MG TABLET PO SCH (09:18)
[2019-10-20] MEDS: ENOXAPARIN 40MG/0.4ML SYR SUBCUT SCH (09:18)
[2019-10-20] MEDS ORDERED: SODIUM POLYSTYRENE SULFONATE 15 G/60 ML BOT PO NR (10:30)
[2019-10-20 12:00] VITALS: BP 147/73
[2019-10-20 16:00] VITALS: BP 112/62
[2019-10-20] MEDS: DOCUSATE SODIUM 250MG CAPSULE PO SCH (17:00)
[2019-10-20 20:25] VITALS: BP 122/63
[2019-10-20] MEDS: LATANOPROST 0.005% OPHTH DROPS 2.5ML BOTHEYE SCH (21:06)
[2019-10-21 00:20] VITALS: BP 135/85
[2019-10-21 04:00] VITALS: BP 140/59
[2019-10-21] MEDS: PIPERACILLIN/TAZOBACTAM 3.375 G in DEXT 5% WATER 100 ML IV SCH ×3 (05:32→21:07)
[2019-10-21 07:33] LABS: BASOPHILS % 0.8 % (0.0-2.0); EOSINOPHILS % 4.3 % (0.0-5.0); HEMATOCRIT. 28.6 % (36.0-48.0); HEMOGLOBIN. 9.6 g/dL (12.0-16.0); LYMPHOCYTES % 32.5 % (20.0-50.0); MEAN CORPUSCULAR HEMOGLOBIN 31.3 pg (28.0-32.0); MEAN CORPUSCULAR VOLUME 93.4 fL (81.0-99.0); MEAN PLATELET VOLUME 6.4 fl (7.4-10.4); MONOCYTES % 7.2 % (2.0-8.0); NEUTROPHILS % 55.2 % (40.0-76.0); PLATELET 339 x1000/uL (130-400); RED BLOOD CELL COUNT 3.06 mill/uL (4.2-5.4); RED CELL DISTRIBUTION WIDTH 13.9 % (11.6-14.6)
[2019-10-21] MEDS: INSULIN LISPRO 100 UNITS/ML SUBCUT SCH ×4 (07:50→21:00)
[2019-10-21] MEDS: BLOOD SUGAR DIAGNOSTIC STRIP TEST SCH ×4 (07:55→21:07)
[2019-10-21 07:56] LABS: CHLORIDE 115 mEq/L (98-107)
[2019-10-21 08:06] VITALS: BP 138/64
[2019-10-21] MEDS: ENOXAPARIN 30MG/0.3ML SYR SUBCUT SCH (08:25)
[2019-10-21] MEDS: METFORMIN HCL 500MG TABLET PO SCH ×2 (08:26→17:41)
[2019-10-21] MEDS: ASCORBIC ACID 500 MG TABLET PO SCH (08:28)
[2019-10-21 12:00] VITALS: BP 154/55
[2019-10-21] MEDS: SODIUM CHLORIDE 0.9% 1,000 ML IV SCH (13:15)
[2019-10-21 16:15] VITALS: BP 140/72
[2019-10-21] MEDS: DOCUSATE SODIUM 250MG CAPSULE PO SCH (17:41)
[2019-10-21 20:49] VITALS: BP 117/58
[2019-10-21] MEDS: LATANOPROST 0.005% OPHTH DROPS 2.5ML BOTHEYE SCH (21:06)
[2019-10-22 00:23] VITALS: BP 141/66
[2019-10-22 04:00] VITALS: BP 116/61
[2019-10-22] MEDS: PIPERACILLIN/TAZOBACTAM 3.375 G in DEXT 5% WATER 100 ML IV SCH ×2 (05:21→12:38)
[2019-10-22] MEDS: SODIUM CHLORIDE 0.9% 1,000 ML IV SCH (06:07)
[2019-10-22] MEDS: INSULIN LISPRO 100 UNITS/ML SUBCUT SCH ×3 (06:23→17:23)
[2019-10-22] MEDS: BLOOD SUGAR DIAGNOSTIC STRIP TEST SCH ×3 (06:23→17:19)
[2019-10-22 08:15] VITALS: BP 124/68
[2019-10-22] MEDS: METFORMIN HCL 500MG TABLET PO SCH ×2 (08:47→17:19)
[2019-10-22] MEDS: ASCORBIC ACID 500 MG TABLET PO SCH (08:47)
[2019-10-22] MEDS: ENOXAPARIN 30MG/0.3ML SYR SUBCUT SCH (08:48)
[2019-10-22] MEDS ORDERED: ZINC SULFATE 220 MG ( 50 ) CAPSULE PO SCH (09:00)
[2019-10-22] MEDS ORDERED: ASCORBIC ACID 500 MG TABLET PO SCH (09:00)
[2019-10-22 12:16] VITALS: BP 137/70
[2019-10-22 16:25] VITALS: BP 148/86
[2019-10-22 16:26] VITALS: BP 148/86
[2019-10-22] MEDS: DOCUSATE SODIUM 250MG CAPSULE PO SCH (17:19)
== END 2019-10-22 19:21 | DRG 871 ==
LOC: ER 11:55 → 6WST 13:27 → EDBEDREQ 13:46 → ENRESERV 21:38
PROVIDERS: ADMIT Internal Medicine Nephrology; ATTEND Internal Medicine Nephrology
DX: A41.9 Sepsis, unspecified organism (principal); L89.153 Pressure ulcer of sacral region, stage 3; E46 Unspecified protein-calorie malnutrition; I50.30 Unspecified diastolic (congestive) heart failure; N39.0 Urinary tract infection, site not specified; I69.354 Hemiplegia and hemiparesis following cerebral infarction affecting left non-dominant side; E86.0 Dehydration; E11.65 Type 2 diabetes mellitus with hyperglycemia; F20.9 Schizophrenia, unspecified; I11.0 Hypertensive heart disease with heart failure; R13.10 Dysphagia, unspecified; I25.10 Atherosclerotic heart disease of native coronary artery without angina pectoris; J44.9 Chronic obstructive pulmonary disease, unspecified; F03.90 Unspecified dementia, unspecified severity, without behavioral disturbance, psychotic disturbance, mood disturbance, and anxiety; Z74.01 Bed confinement status; Z79.4 Long term (current) use of insulin; Z95.0 Presence of cardiac pacemaker
CPT/HCPCS: 36415; 71045; 80048; 80053; 81003; 82962; 83605; 83735; 83880; 84443; 84484; 85025; 93005; 99285; C1893; J0696; J1650; J1815; J1956; J2543; J7030; J7050; J7060; A4315

== ENCOUNTER 2022-06-09 01:54 | Inpatient (IN) | payer MEDICARE, MEDICAID ==
[~2022-06-09] VITALS: Ht 157.5 cm; Wt 78.1 kg
[~2022-06-09 01:54] MED LIST changes: -DOCU-150 PO; +DOCU250C14 PO; -FENO200C PO; -LANTUS SQ; +LATA2.5D14 EACHEYE; +METF-414 PO
[2022-06-09] MEDS ORDERED: PANTOPRAZOLE SODIUM 40 MG/VIAL IV STA (02:42)
[2022-06-09] MEDS ORDERED: ONDANSETRON HCL 4MG/2ML INJ IV STA (02:42)
[2022-06-09] MEDS ORDERED: SODIUM CHLORIDE 0.9% 1,000 ML IV ONE (02:45)
[2022-06-09 03:25] LABS: BASOPHILS % 0.6 % (0.0-2.0); EOSINOPHILS % 1.8 % (0.0-5.0); HEMATOCRIT. 36.8 % (36.0-48.0); HEMOGLOBIN. 12.3 g/dL (12.0-16.0); LYMPHOCYTES % 18.9 % (20.0-50.0); MEAN CORPUSCULAR HEMOGLOBIN 32.9 pg (28.0-32.0); MEAN CORPUSCULAR VOLUME 98.3 fL (81.0-99.0); MEAN PLATELET VOLUME 7.2 fl (7.4-10.4); MONOCYTES % 4.7 % (2.0-8.0); PLATELET 287 x1000/uL (130-400); RED BLOOD CELL COUNT 3.75 mill/uL (4.2-5.4); RED CELL DISTRIBUTION WIDTH 12.5 % (11.6-14.6)
[2022-06-09 03:34] LABS: CHLORIDE 109 mEq/L (98-107)
[2022-06-09 03:36] LABS: INR 0.9
[2022-06-09 07:48] VITALS: BP 149/59
[2022-06-09] MEDS ORDERED: DOCUSATE SODIUM 100MG CAPSULE PO PRN (08:45)
[2022-06-09] MEDS ORDERED: CLONIDINE 0.1MG TABLET PO PRN (08:45)
[2022-06-09] MEDS ORDERED: ACETAMINOPHEN 325MG TABLET PO PRN (08:45)
[2022-06-09] MEDS ORDERED: LACTULOSE 20G/30ML UDC PO PRN (08:45)
[2022-06-09] MEDS ORDERED: ONDANSETRON HCL 4MG/2ML INJ IV PRN (08:45)
[2022-06-09] MEDS ORDERED: MAGNESIUM/ALUMINUM HYDROXIDE/SIMETHICONE 30ML UDC PO PRN (08:45)
[2022-06-09] MEDS: GLIPIZIDE 5MG TABLET PO SCH (10:02)
[2022-06-09] MEDS: DEXT 5%/0.45% NACL 1000ML 1,000 ML IV SCH (10:02)
[2022-06-09] MEDS: INSULIN GLARGINE 100 UNITS/ML SUBCUT SCH ×2 (10:05→20:34)
[2022-06-09 12:00] VITALS: BP 139/78
[2022-06-09] MEDS ORDERED: DEXTROSE 50% WATER 50ML SYRINGE IV PRN (12:15)
[2022-06-09] MEDS ORDERED: GLIP5TAB12 MT (12:25)
[2022-06-09] MEDS ORDERED: ACET-2708 MT (12:26)
[2022-06-09] MEDS ORDERED: LACT10SO30 MT (12:30)
[2022-06-09] MEDS ORDERED: INSU100I28 SQ (12:39)
[2022-06-09] MEDS ORDERED: LATA2.5D14 BOTHEYE (12:40)
[2022-06-09] MEDS ORDERED: MAG355OR21 MT (12:41)
[2022-06-09] MEDS ORDERED: D-ME1TAB32 PO (12:45)
[2022-06-09] MEDS ORDERED: INSNOV SUBCUT (12:47)
[2022-06-09] MEDS ORDERED: AMIN30LI27 PO (12:49)
[2022-06-09] MEDS ORDERED: GUAI-824 MT (12:50)
[2022-06-09] MEDS ORDERED: ASCO500C18 MT (12:51)
[2022-06-09] MEDS: BLOOD SUGAR DIAGNOSTIC STRIP TEST SCH ×3 (12:57→20:34)
[2022-06-09] MEDS: INSULIN LISPRO 100 UNITS/ML SUBCUT SCH ×3 (12:57→20:34)
[2022-06-09 16:00] VITALS: BP 133/67
[2022-06-09 16:30] LABS: HEMATOCRIT 34.6 % (36.0-48.0); HEMOGLOBIN 11.3 g/dL (12.0-16.0)
[2022-06-09 20:00] VITALS: BP 120/73
[2022-06-09 22:12] LABS: HEMATOCRIT 30.3 % (36.0-48.0); HEMOGLOBIN 9.9 g/dL (12.0-16.0)
[2022-06-10] VITALS: BP 116/74
[2022-06-10] MEDS: DEXT 5%/0.45% NACL 1000ML 1,000 ML IV SCH ×2 (02:03→18:14)
[2022-06-10 04:00] VITALS: BP 116/63
[2022-06-10] MEDS: GLIPIZIDE 5MG TABLET PO SCH (05:34)
[2022-06-10] MEDS: BLOOD SUGAR DIAGNOSTIC STRIP TEST SCH ×4 (06:15→20:39)
[2022-06-10 06:59] LABS: BASOPHILS % 0.9 % (0.0-2.0); EOSINOPHILS % 4.7 % (0.0-5.0); HEMATOCRIT. 30.7 % (36.0-48.0); HEMOGLOBIN. 10.3 g/dL (12.0-16.0); LYMPHOCYTES % 43.1 % (20.0-50.0); MEAN CORPUSCULAR HEMOGLOBIN 32.7 pg (28.0-32.0); MEAN CORPUSCULAR VOLUME 97.2 fL (81.0-99.0); MEAN PLATELET VOLUME 7.3 fl (7.4-10.4); MONOCYTES % 7.4 % (2.0-8.0); NEUTROPHILS % 43.9 % (40.0-76.0); PLATELET 222 x1000/uL (130-400); RED BLOOD CELL COUNT 3.16 mill/uL (4.2-5.4); RED CELL DISTRIBUTION WIDTH 12.9 % (11.6-14.6)
[2022-06-10 07:21] LABS: CHLORIDE 113 mEq/L (98-107)
[2022-06-10 08:00] VITALS: BP 107/60
[2022-06-10] MEDS: INSULIN LISPRO 100 UNITS/ML SUBCUT SCH ×4 (08:10→20:39)
[2022-06-10] MEDS: PANTOPRAZOLE SODIUM 40 MG/VIAL IV SCH (09:29)
[2022-06-10] MEDS: INSULIN GLARGINE 100 UNITS/ML SUBCUT SCH ×2 (09:30→20:39)
[2022-06-10 12:00] VITALS: BP 103/52
[2022-06-10 16:00] VITALS: BP 133/55
[2022-06-10 20:00] VITALS: BP 140/50
[2022-06-11] VITALS: BP 150/63
[2022-06-11 04:00] VITALS: BP 136/65
[2022-06-11] MEDS: BLOOD SUGAR DIAGNOSTIC STRIP TEST SCH ×4 (06:40→21:00)
[2022-06-11] MEDS: INSULIN LISPRO 100 UNITS/ML SUBCUT SCH ×4 (06:40→21:00)
[2022-06-11] MEDS: GLIPIZIDE 5MG TABLET PO SCH (06:40)
[2022-06-11 08:00] VITALS: BP 141/61
[2022-06-11] MEDS: PANTOPRAZOLE SODIUM 40 MG/VIAL IV SCH (09:35)
[2022-06-11] MEDS: INSULIN GLARGINE 100 UNITS/ML SUBCUT SCH ×2 (11:11→22:00)
[2022-06-11] MEDS: DEXT 5%/0.45% NACL 1000ML 1,000 ML IV SCH (11:12)
[2022-06-11 12:00] VITALS: BP 136/43
[2022-06-11 16:00] VITALS: BP 147/53
[2022-06-11 20:00] VITALS: BP 165/66
[2022-06-12] VITALS: BP 137/74
[2022-06-12 04:00] VITALS: BP 157/66
[2022-06-12] MEDS: INSULIN LISPRO 100 UNITS/ML SUBCUT SCH ×3 (06:28→21:00)
[2022-06-12] MEDS: BLOOD SUGAR DIAGNOSTIC STRIP TEST SCH ×3 (06:28→21:15)
[2022-06-12] MEDS: GLIPIZIDE 5MG TABLET PO SCH (06:28)
[2022-06-12 08:00] VITALS: BP 134/39
[2022-06-12 08:07] LABS: BASOPHILS % 0.5 % (0.0-2.0); EOSINOPHILS % 3.8 % (0.0-5.0); HEMATOCRIT. 33.3 % (36.0-48.0); HEMOGLOBIN. 11.1 g/dL (12.0-16.0); LYMPHOCYTES % 33.6 % (20.0-50.0); MEAN CORPUSCULAR HEMOGLOBIN 32.7 pg (28.0-32.0); MEAN CORPUSCULAR VOLUME 97.7 fL (81.0-99.0); MONOCYTES % 6.7 % (2.0-8.0); NEUTROPHILS % 55.4 % (40.0-76.0); PLATELET 259 x1000/uL (130-400); RED BLOOD CELL COUNT 3.41 mill/uL (4.2-5.4); RED CELL DISTRIBUTION WIDTH 12.8 % (11.6-14.6)
[2022-06-12 08:17] LABS: CHLORIDE 113 mEq/L (98-107)
[2022-06-12] MEDS: FAMOTIDINE 20MG TABLET PO SCH (09:00)
[2022-06-12] MEDS: INSULIN GLARGINE 100 UNITS/ML SUBCUT SCH ×2 (10:00→21:15)
[2022-06-12 12:00] VITALS: BP 133/48
[2022-06-12 16:00] VITALS: BP 131/50
[2022-06-12 20:00] VITALS: BP_SYST 145; BP_SYST 165; BP_SYST 168; BP_DIAS 56; BP_DIAS 84; BP_DIAS 97
[2022-06-13] VITALS: BP 165/97
[2022-06-13 04:00] VITALS: BP 155/111
[2022-06-13] MEDS: GLIPIZIDE 5MG TABLET PO SCH (06:29)
[2022-06-13] MEDS: BLOOD SUGAR DIAGNOSTIC STRIP TEST SCH (06:29)
[2022-06-13] MEDS: INSULIN LISPRO 100 UNITS/ML SUBCUT SCH (06:29)
[2022-06-13 07:08] LABS: CHLORIDE 112 mEq/L (98-107)
[2022-06-13 07:14] LABS: BASOPHILS % 0.4 % (0.0-2.0); EOSINOPHILS % 4.3 % (0.0-5.0); HEMATOCRIT. 34.6 % (36.0-48.0); HEMOGLOBIN. 11.3 g/dL (12.0-16.0); LYMPHOCYTES % 34.1 % (20.0-50.0); MEAN CORPUSCULAR HEMOGLOBIN 32.5 pg (28.0-32.0); MEAN CORPUSCULAR VOLUME 99.1 fL (81.0-99.0); MONOCYTES % 7.7 % (2.0-8.0); NEUTROPHILS % 53.5 % (40.0-76.0); PLATELET 267 x1000/uL (130-400); RED BLOOD CELL COUNT 3.49 mill/uL (4.2-5.4); RED CELL DISTRIBUTION WIDTH 12.7 % (11.6-14.6)
[2022-06-13 08:00] VITALS: BP 130/79
[2022-06-13] MEDS: FAMOTIDINE 20MG TABLET PO SCH (09:08)
[2022-06-13 12:00] VITALS: BP 124/59
[2022-06-13 12:08] VITALS: BP 124/59
== END 2022-06-13 13:10 | DRG 377 ==
LOC: ER 01:54 → 7WST 04:27 → ENRESERV 05:35
PROVIDERS: ADMIT Internal Medicine Nephrology; ATTEND Internal Medicine Nephrology
DX: K92.0 Hematemesis (principal); R53.2 Functional quadriplegia; I50.32 Chronic diastolic (congestive) heart failure; I69.354 Hemiplegia and hemiparesis following cerebral infarction affecting left non-dominant side; E86.0 Dehydration; I11.0 Hypertensive heart disease with heart failure; E11.9 Type 2 diabetes mellitus without complications; J44.9 Chronic obstructive pulmonary disease, unspecified; F03.90 Unspecified dementia, unspecified severity, without behavioral disturbance, psychotic disturbance, mood disturbance, and anxiety; I25.10 Atherosclerotic heart disease of native coronary artery without angina pectoris; F20.9 Schizophrenia, unspecified; Z74.01 Bed confinement status; Z87.11 Personal history of peptic ulcer disease; Z95.0 Presence of cardiac pacemaker; I69.321 Dysphasia following cerebral infarction
CPT/HCPCS: 36415; 71045; 74018; 80048; 80053; 82962; 83036; 83605; 83735; 84484; 85014; 85018; 85025; 86850; 86900; 99291; A6261; C9113; J1815; J2405; J7030